=== PATIENT | female | born 1980 | race Two or more races ===

== ENCOUNTER 2023-09-27 18:24 | Inpatient (IN) | payer MEDICAID ==
[2023-09-27 20:00] VITALS: BP 144/94; TEMP 99.7; O2SAT 98
[2023-09-27] MEDS: MORPHINE SULFATE INJ 2 MG/ML DISP.SYRIN IV PRN (21:43)
[2023-09-27] MEDS ORDERED: ONDANSETRON HCL/PF 4 MG/2 ML VIAL IVP PRN (22:00)
[2023-09-27] MEDS ORDERED: MAGNESIUM HYDROXIDE 30 ML UDC PO PRN (22:00)
[2023-09-27] MEDS ORDERED: MAG HYDROX/AL HYDROX/SIMETH 30 ML UDC PO PRN (22:00)
[2023-09-27] MEDS ORDERED: ZOLPIDEM TARTRATE 5 MG TABLET PO PRN (22:00)
[2023-09-27] MEDS ORDERED: Z GUARD REMEDY 4 OZ OINT TP PRN (22:00)
[2023-09-27] MEDS: IV NS 0.9% 1,000 ML IV SCH (22:44)
[2023-09-28] VITALS: BP 144/95; TEMP 99.7; O2SAT 97
[2023-09-28 04:00] VITALS: BP 139/93; TEMP 98.2; O2SAT 97
[2023-09-28 07:37] LABS: BASOPHILS % (AUTO) 0.4 % (0.0-2.0); EOSINOPHILS % (AUTO) 0.1 % (0.0-6.0); HEMATOCRIT 30 % (33-45); HEMOGLOBIN 10.3 g/dL (11.5-14.8); LYMPHOCYTES % (AUTO) 15.9 % (20.0-44.0); MEAN CORPUSCULAR HEMOGLOBIN 32 PG (26.0-33.0); MEAN CORPUSCULAR HGB CONC 34 g/dl (31.0-36.0); MEAN CORPUSCULAR VOLUME 94 fL (82-100); MONOCYTES # (AUTO) 0.8 K/uL (0.1-1.30); MONOCYTES % (AUTO) 12.4 % (2.0-12.0); NEUTROPHILS # (AUTO) 4.4 K/uL (1.8-8.9); NEUTROPHILS % (AUTO) 71.2 % (43.0-81.0); PLATELET COUNT (AUTO) 168 K/uL (150-450); RED BLOOD CELL COUNT(AUTO) 3.22 MIL/uL (4.0-5.2); RED CELL DISTRIBUTION WIDTH 21.9 % (11.5-15.0); WHITE BLOOD COUNT (AUTO) 6.2 K/uL (4.3-11.0)
[2023-09-28 08:00] VITALS: BP 126/68; TEMP 98.2; O2SAT 92
[2023-09-28] MEDS: PANTOPRAZOLE 40 MG VIAL IV SCH (08:02)
[2023-09-28 08:07] LABS: ALANINE AMINOTRANSFERASE 58 U/L (12-78); ALBUMIN 2.8 g/dL (3.4-5.0); ALKALINE PHOSPHATASE 64 U/L (46-116); AMYLASE 225 U/L (25-115); ASPARTATE AMINOTRANSFERASE 46 U/L (15-37); BILIRUBIN,TOTAL 1.3 mg/dL (0.2-1.0); CALCIUM, SERUM 8.4 mg/dL (8.5-10.1); CARBON DIOXIDE 21 mmol/L (21-32); CHLORIDE 106 mmol/L (98-107); CREATININE 0.6 mg/dL (0.6-1.3); GLUCOSE 79 mg/dL (74-106); MAGNESIUM 2.2 mg/dL (1.8-2.4); PHOSPHORUS 1.5 mg/dL (2.5-4.9); POTASSIUM 2.9 mmol/L (3.5-5.1); SODIUM SERUM 140 mmol/L (136-145); TOTAL PROTEIN, SERUM 5.8 g/dL (6.4-8.2); UREA NITROGEN, BLOOD 11 mg/dL (7-18)
[2023-09-28] MEDS ORDERED: ALPR0.5T8 PO (08:11)
[2023-09-28 08:50] LABS: LIPASE > 375 U/L (16-77)
[2023-09-28] MEDS: POTASSIUM CHLORIDE 20 MEQ TAB.PRT.SR PO ONE (11:24)
[2023-09-28] MEDS ORDERED: POTASSIUM CL. PREMIX PERIPHER. 50 ML IV SCH (11:30)
[2023-09-28 12:00] VITALS: TEMP 98
[2023-09-28] MEDS: IV NS 0.9% 1,000 ML IV SCH (12:54)
[2023-09-28 13:14] LABS: PREGNANCY TEST URINE QUAL NEGATIVE (NEGATIVE)
[2023-09-28] MEDS: ACETAMINOPHEN 325 MG TABLET PO PRN (14:59)
[2023-09-28] MEDS: K PHOS NEUTRAL 250 MG TABLET PO ONE (15:20)
[2023-09-28 16:00] VITALS: BP 133/94; TEMP 98.6; O2SAT 96
== END 2023-09-28 19:30 | disposition home or self-care (01) | DRG 282 ==
LOC: TELE-TD 18:26 → TELE1 21:00 → MEDSG1 09-28 08:53
PROVIDERS: ADMIT Nurse Practitioner Family; ATTEND Student in an Organized Health Care Education/Training Program
DX: K85.90 Acute pancreatitis without necrosis or infection, unspecified (principal); E66.3 Overweight; E87.6 Hypokalemia; F32.A Depression, unspecified; Z88.0 Allergy status to penicillin; R74.01 Elevation of levels of liver transaminase levels; F10.939 Alcohol use, unspecified with withdrawal, unspecified
CPT/HCPCS: 36415; 80053-TC; 82150-TC; 83690-TC; 83735-TC; 84100-TC; 84703-TC; 85025-TC; A4223; C9113; G0378; J2270; J7030